=== PATIENT | female | born 2000 | race Hispanic/Latino ===

== ENCOUNTER 2020-04-14 19:52 | Emergency (ER) | payer OTHER, SELFPAY ==
[2020-04-14 20:11] VITALS: BP 149/95; PULSE 78; RESP 14; TEMP 36.9; O2SAT 100; BMI 23.1
[2020-04-14 21:05] LABS: COVID19 -Nasal RAPID Negative (Negative)
--- NOTE | 2020-04-14 21:38 | ED.RECABL ---
HPI - Recheck/Abnormal Lab/Rx General Chief Complaint: Recheck/Abnormal Lab/Rx Stated Complaint: Wants Covid Test, No symptoms Time Seen by Provider: 04/14/20 20:36 Source: patient Mode of arrival: Ambulatory Limitations: no limitations History of Present Illness HPI narrative: 19-year-old female who was exposed to COVID without any symptoms here for COVID test. States her work needs this test. Related Data Allergies Allergy/AdvReac Type Severity Reaction Status Date / Time No Known Drug Allergies Allergy Verified 04/14/20 20:11 Review of Systems Constitutional Constitutional: Denies fever(s) Cardiovascular Cardiovascular: Denies chest pain and Denies dyspnea Respiratory Respiratory: Denies dyspnea Gastrointestinal Gastrointestinal: Denies abdominal pain Integumentary/Breasts Skin/Breast: Denies rash Patient History Medical History Healthy adult (Acute) Social History Smoking Status: Unknown if ever smoked Smoking Status: Unknown if ever smoked alcohol intake frequency: holidays/special occasions only Substance Use Type: does not use Exam Initial Vital Signs Initial Vital Signs: Vital Signs Temperature 98.5 F 04/14/20 20:11 Pulse Rate 78 04/14/20 20:11 Respiratory Rate 14 04/14/20 20:11 Blood Pressure 149/95 H 04/14/20 20:11 Pulse Oximetry 100 04/14/20 20:11 Const General: cooperative, healthy appearing, comfortable and well developed Resp Effort & Inspection: normal respiratory effort Cardio Rate: regular rate Skin Rashes: no rashes Neuro General: patient alert, patient awake and patient oriented x3 Extrem General: normal to inspection Psych Appearance: grossly normal Course Orders Ordered: ED Orders 04/14/20 20:40 COVID19 Stat Vital Signs Vital signs: Vital Signs - 8 hr 04/14/20 20:11 Temperature 98.5 F Pulse Rate 78 Respiratory Rate 14 Blood Pressure 149/95 H Pulse Oximetry 100 MDM - Recheck/Abnormal Lab/Rx Lab Data Attestation: I reviewed the patient's lab results. Labs: Lab Results 04/14/20 Range/Units 20:40 COVID-19 PCR Negative (Negative) MDM Narrative Medical decision making narrative: Coronavirus test is negative, she was provided with results. No further workup necessary in the ER. Discharge Plan Departure Patient Disposition: Home Clinical Impression: Encounter for screening laboratory testing for COVID-19 virus Discharge Date/Time: 04/14/20 21:58 Activity Restrictions/Additional Instructions: Your coronavirus test was negative.
== END 2020-04-14 21:58 | disposition home or self-care (01) ==
PROVIDERS: Emergency Provider Emergency Medicine
DX: Z03.818 Encounter for observation for suspected exposure to other biological agents ruled out (principal)
CPT/HCPCS: 87635; 99281; 99282